=== PATIENT | male | born 1980 | race African-American/Black ===

== ENCOUNTER 2018-03-14 20:05 | Emergency (ER) | payer SELFPAY ==
[~2018-03-14] VITALS: Ht 182.9 cm; Wt 90.7 kg
[2018-03-14 20:17] VITALS: BP 131/69
[2018-03-14] MEDS ORDERED: LIDOCAINE 2% 20 ML VIAL. IJ ONE (20:45)
[2018-03-14] MEDS ORDERED: SULF1TAB24 PO (20:56)
--- NOTE | 2018-03-14 20:57 | PHYS DOC ---
Past Medical History Past Medical History: No Pertinent History Past Surgical History: Colectomy, Other Additional Past Surgical Histo: SKIN GRAFT L. ARM Alcohol Use: Occasionally Drug Use: None Adult General Chief Complaint Chief Complaint: ABSCESS HPI HPI Patient is a 38 year old male who presents with a large abscess to his shoulder. The patient states that he has had a lump on that shoulder for at least 2 years. He states in the past few days it has grown in size considerably and become extremely tender to touch. He denies fever, nausea or vomiting. He has never had this looked at by his primary care. Review of Systems Review of Systems Constitutional: Denies fever or chills [] Respiratory: Denies cough or shortness of breath [] Cardiovascular: No additional information not addressed in HPI [] GI: Denies abdominal pain, nausea, vomiting, bloody stools or diarrhea [] : Denies dysuria or hematuria [] Musculoskeletal: Denies back pain or joint pain [] Integument: See history of present illness Neurologic: Denies headache, focal weakness or sensory changes [] Endocrine: Denies polyuria or polydipsia [] All other systems were reviewed and found to be within normal limits, except as documented in this note. Current Medications Current Medications Current Medications Medications (Trade) Dose Ordered Sig/Belle Start Time Stop Time Status Last Admin Dose Admin Lidocaine HCl 20 ml 1X ONCE 03/14/18 20:45 03/14/18 20:46 DC 03/14/18 20:40 20 ML Allergies Allergies Allergies Coded Allergies Type Severity Reaction Last Updated Verified No Known Drug Allergies 03/14/18 No Physical Exam Physical Exam Constitutional: Well developed, well nourished, no acute distress, non-toxic appearance. [] Cardiovascular:Heart rate regular rhythm, no murmur [] Lungs & Thorax: Bilateral breath sounds clear to auscultation [] Abdomen: Bowel sounds normal, soft, no tenderness, no masses, no pulsatile masses. [] Skin: 3.5 cm in diameter abscess to the left shoulder that appears to be an infected fatty lipoma, there is fluctuance and a small amount of induration Back: No tenderness, no CVA tenderness. [] Extremities: No tenderness, no cyanosis, no clubbing, ROM intact, no edema. [] Neurologic: Alert and oriented X 3, normal motor function, normal sensory function, no focal deficits noted. [] Psychologic: Affect normal, judgement normal, mood normal. [] Current Patient Data Vital Signs Vital Signs Date Time Temp Pulse Resp B/P (MAP) Pulse Ox O2 Delivery O2 Flow Rate FiO2 03/14/18 20:17 97.7 80 20 131/69 (89) 98 Room Air 97.7 EKG EKG [] Radiology/Procedures Radiology/Procedures Abscess Incision and Drainage with irrigation by me: Location: Left Shoulder Anesthesia: Local 1% Lidocaine Technique: The abscess was opened using an 11 blade after instillation of lidocaine. A large amount of purulent material was expressed from the lesion. The patient tolerated the procedure well. The lesion was flat following expression of the material. Irrigated. Packing: None Complications: Neurovascularly intact post procedure 48 hour wound check. Scar minimization instructions given. Course & Med Decision Making Course & Med Decision Making Pertinent Labs and Imaging studies reviewed. (See chart for details) [] Dragon Disclaimer Dragon Disclaimer This electronic medical record was generated, in whole or in part, using a voice recognition dictation system. Departure Departure Impression: Primary Impression: Abscess Disposition: 01 HOME, SELF-CARE Condition: STABLE Patient Instructions: Abscess Additional Instructions: Keep wound clean and dry. You may change the dressing if needed. Follow-up with your provider in 48 hours for wound recheck or return to the emergency department for recheck. Scripts Sulfamethoxazole/Trimethoprim (BACTRIM DS TABLET) 1 Each Tablet 1 TAB PO BID for abscess, #20 TAB Prov: MICA SR APRN 03/14/18 MICA SR APRN Mar 14, 2018 20:57
== END 2018-03-14 21:11 | disposition home or self-care (01) ==
LOC: ER 20:05
DX: L02.414 Cutaneous abscess of left upper limb (principal); Z90.49 Acquired absence of other specified parts of digestive tract
CPT/HCPCS: 10060; 99283; J2001

== ENCOUNTER 2021-04-23 08:52 | Emergency (ER) | payer OTHER ==
[~2021-04-23] VITALS: Ht 182.9 cm; Wt 85.0 kg
[~2021-04-23 08:52] MED LIST: SULF1TAB24 PO
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
[2021-04-23] MEDS ORDERED: TRAM50TA PO (09:50)
[2021-04-23] MEDS ORDERED: ORPH100T PO (09:50)
[2021-04-23 09:58] VITALS: BP 126/77
== END 2021-04-23 10:00 | disposition home or self-care (01) ==
LOC: ER 08:52
DX: M54.59 Other low back pain (principal); M54.2 Cervicalgia; F17.200 Nicotine dependence, unspecified, uncomplicated; V89.2XXA Person injured in unspecified motor-vehicle accident, traffic, initial encounter; Y93.89 Activity, other specified; Y92.89 Other specified places as the place of occurrence of the external cause; Y99.8 Other external cause status
CPT/HCPCS: 99283